=== PATIENT | female | born 1955 | race Caucasian/White ===

== ENCOUNTER 2021-09-04 13:06 | Emergency (ER) | payer MEDICARE ==
[2021-09-04 14:07] LABS: HEMOGLOBIN 16.1 gm/dl (12.3-15.3); RED BLOOD COUNT 5.24 M/UL (4.00-5.10); WHITE BLOOD COUNT 8.1 K/UL (4.5-11.0)
[2021-09-04 14:27] LABS: BUN/CREATININE RATIO 21 (0-10)
== END 2021-09-04 18:00 | disposition home or self-care (01) ==
LOC: ER1 13:06
PROVIDERS: Physician Assistant
DX: R07.9 Chest pain, unspecified (principal); E78.5 Hyperlipidemia, unspecified; Z79.899 Other long term (current) drug therapy; I10 Essential (primary) hypertension
CPT/HCPCS: 71045; 80053; 81001; 82550; 82553; 83874; 84484; 85025; 93005; 99285

== ENCOUNTER → 2021-09-24 | Outpatient (CLI) | payer MEDICARE | LOC: HEART 5 11:07 | DX: R07.9 Chest pain, unspecified (principal); I11.9 Hypertensive heart disease without heart failure; I07.1 Rheumatic tricuspid insufficiency | CPT/HCPCS: 93306 ==